=== PATIENT | female | born 1980 | race African-American/Black ===

== ENCOUNTER 2022-01-08 02:57 | Inpatient (IN) | payer BC, SELFPAY ==
[2022-01-08] VITALS (20 sets, daily range): BP systolic 93–125; BP diastolic 55–88; PULSE 70–95; RESP 16; TEMP 36.4–37.4; O2SAT 97; BMI 32.3
[2022-01-08] MEDS: METHYLERGONOVINE MALEATE 0.2 MG/ML INJ IM (03:52)
[2022-01-08] MEDS: miSOPROStoL 800 MCG/4 TABLET PR (03:55)
--- NOTE | 2022-01-08 04:22 | PM.OBHPLI ---
OB - H&P: HPI Labor/Induction History of Present Illness Time Seen by Provider: 03:15 Date Seen: 01/08/22 Chief Complaint: The patient is a 41 year old 10 para 6 at 37 2/7 weeks gestation by LMP, who presented to L&D reporting SROM at 0134 with clear fluid. Chief complaint: Maternity : 10 Para: 6 Date of last menstrual period: 04/22/21 Estimated date of delivery: 01/27/22 Gestational age based on last menstrual period: 37 Narrative: Poppy Barber is a 41 year old 10 para 6 at 37 2/7 weeks gestation by LMP c/w 5w6d US, who presented to L&D reporting SROM at 0134 with clear fluid. PT reports mild contractions started shortly thereafter and became drastically stronger at 2:25am. She arrived at hospital at 3am and was checked by nursing and complete History of Present Dating criteria: based on LMP care: good care Ultrasounds: normal 1st trimester US and abnormal US findings Abnormal ultrasound findings: Initial level 2 anatomy with marginal placenta previa. Follow up US 12/04/21 showed resolution of previa but with ?microcephaly. Level 2US with MPP 12/21/21 reported 'no evidence of microcephaly' with EFW 38% complications comment: Grandmultiparous and AMA, weekly BPP's since 32wks Labs Blood type: A (+) positive Rubella: immune RPR/VDLR: nonreactive GBS status: negative HBsAG: negative Meds Home Medications and Allergies Home Medications Medication Instructions Recorded Confirmed Type aspirin 81 mg tablet,delayed mg 01/08/22 History release Home Medication Comments: PNV daily Allergies Allergy/AdvReac Type Severity Reaction Status Date / Time No Known Drug Allergies Allergy Verified 01/08/22 04:00 OB - H&P: Exam Physical Exam: Vital signs: Temp Pulse BP 97.6 F 91 116/71 01/08/22 03:32 01/08/22 04:15 01/08/22 04:15 Narrative: Exam limited as on my arrival pt was complete and ready to push. Detailed Labor and Delivery Exam: Patient Gravid: yes Dilation (cm): 10 Effacement (%): 100 Cervix position: anterior Tachysystole: No Contraction intensity: Strong/Firm Fetus (Single): Amniotic Membrane Status: SROM Amniotic Membrane Fluid Description: Clear Heart Rate Baseline: 140 Monitor Accelerations: Absent Monitor Decelerations: Recurrent (with contractions/pushing) Oncology Radiation Physician Variability: Average (6-10) OB - Problem Based A/P Additional Plan (1) Active labor: Status: Acute (2) AMA (advanced maternal age) multigravida 35+: Status: Acute Delivery/Labor/Induction Plan Plan: expectant management (see delivery note, precipitous delivery)
[2022-01-08] MEDS: ACETAMINOPHEN 500 MG TABLET 1000 MG PO ×3 (04:35→19:42)
--- NOTE | 2022-01-08 04:47 | PM.OBPRCVD ---
Procedure Delivery date: 01/08/22 Procedure Done: Global Procedure Details: The patient is a 41 year-old admitted on 01/08/22 at 37 Weeks, 2 Days gestation for SROM and active labor.? Cervical exam on admission was 10 cm/100 % effaced with membranes ruptured in vertex presentation.? Contractions were every 2-3 minutes.? heart rate demonstrated baseline 140 bpm with moderate variability, no accelerations, + variable decelerations with contractions; a category 1 tracing.? SROM occurred at 0134 with clear fluid. Pt reports mild cramping started shortly thereafter and then significantly increased around 2:25 and she presented to Center at 3am complete. On my arrival at 3:15am she was complete and had started 'mild' pushing around 3:12am. I assumed care from ER provider and pt pushed with next contraction, 3 pushes and delivered baby as below. ? Labor Analgesia:? None ? Pitocin:? No ? Labor onset:? 0225am ? Complete:? 0300am ? Pushing:? 0312am ? heart tones during second stage were category 1. ? At 0320 a viable female infant delivered in vertex presentation over intact perineum via spontaneous vaginal delivery.? was placed on maternal abdomen.? Infant had spontaneous cry on delivery. Nose and mouth were bulb suctioned. no resuscitation need. Delayed cord clamping performed.? Infant weight pending.? 8 at 1 minute and 9 at 5 minutes.? Shoulder dystocia: no.? Nuchal cord: no. Shortly after infants delivery, patient has small gush of blood and 800mcg cytotec was placed rectally (due to pitocin shortage). ? Placenta delivered spontaneously and complete at 344 with a 3 vessel cord. Patient then had increased bleeding and bimanual massage performed with good results and firming of uterus. Methergine given. no further significant bleeding. ? Mother and infant were stable after delivery. ? Lacerations:? second degree with superficial tear extending to edge of rectum, repaired with 3-0 vicryl. ? Blood loss: 400 mL. Blood loss measurement type: QBL ? Sponge and needles counts are correct. Events: AMA Intrapartal Events: Precipitous Labor <3 Hrs Delivery monitor: external FHT Route of delivery: Laceration description: Perineal - 2nd Degree Delivery repair: Vicryl Estimated blood loss (mL): 400 Anesthesia type: None Disposition: floor [place] Gender: Female presentation: vertex Placental Delivery Description: Spontaneous Cord Description: 3 Vessels
[2022-01-08 05:15] LABS: Basophils Absolute Auto 0.01 K/uL (0.00-0.30); Basophils Percent Auto 0.1 % (0.0-3.0); Eosinophils Absolute Auto 0.04 K/uL (0.00-0.50); Eosinophils Percent Auto 0.4 % (0.0-7.0); Hematocrit 37.6 % (33.0-51.0); Hemoglobin* 12.1 gm/dL (12.0-16.0); Immature Granulocytes Abs Auto 0.02 K/uL (0.00-0.30); Lymphocytes Percent Auto 10.4 % (20-44); Mean Corpuscular HGB Conc 32 gm/dL (32-36); Mean Corpuscular Hemoglobin 26 pg (26-34); Mean Corpuscular Volume 81 fL (80-100); Monocytes Percent Auto 5.1 % (0.0-11.0); Neutrophils Percent Auto 83.8 % (42.0-72.0); Platelet Count* 187 K/uL (140-440); RDW Coefficient of Variation % 15.4 % (11.5-15.5); Red Blood Count 4.63 m/uL (4.00-5.20); White Blood Count* 10.45 K/uL (4.50-11.00)
[2022-01-08 05:19] LABS: Slide Review Reflex No
[2022-01-08 07:19] LABS: SARS PCR* Negative SARS-CoV-2 (Negative)
[2022-01-08] MEDS: IBUPROFEN 600 MG TABLET PO ×2 (08:30→16:15)
[2022-01-08] MEDS: DOCUSATE SODIUM 100 MG CAPSULE PO (08:30)
[2022-01-09] VITALS: BP 97/63; PULSE 95; RESP 16; TEMP 37.2; O2SAT 97
[2022-01-09] MEDS: IBUPROFEN 600 MG TABLET PO ×2 (00:16→08:44)
[2022-01-09] MEDS: ACETAMINOPHEN 500 MG TABLET 1000 MG PO ×2 (04:25→12:11)
[2022-01-09 04:50] VITALS: BP 93/62; PULSE 95; RESP 16; TEMP 36.8; O2SAT 97
[2022-01-09 07:23] LABS: Hemoglobin* 9.1 gm/dL (12.0-16.0)
[2022-01-09] MEDS: DOCUSATE SODIUM 100 MG CAPSULE PO (08:43)
--- NOTE | 2022-01-09 09:15 | PM.OBDSVD1 ---
DS: Providers Provider Time Seen by Provider: 09:00 Date Seen: 01/09/22 Date of admission: 01/08/22 02:57 Primary care physician: Belgica Linn DO Admitting Clinician: Belgica Linn DO Attending Physician on discharge: Belgica Linn DO Date of Discharge: 01/09/22 DS: Diagnosis Discharge Diagnosis (1) (normal spontaneous vaginal delivery): Status: Acute (2) Precipitous delivery: Status: Acute Exam Const: Vital Signs, click to edit/add: Vital Signs - 24 hr 01/08/22 11:05 01/08/22 16:50 01/08/22 19:30 Temperature 97.7 F 99.4 F 98.9 F Pulse Rate [Pulse Oximeter] 93 92 95 Respiratory Rate 16 16 16 Blood Pressure [Le ft Arm] 93/63 104/70 101/58 L Pulse Oximetry 97 97 97 Oxygen Delivery Me thod Room Air Room Air Room Air 01/09/22 00:00 01/09/22 04:50 Temperature 98.9 F 98.3 F Pulse Rate [Pulse Oximeter] 95 95 Respiratory Rate 16 16 Blood Pressure [Le ft Arm] 97/63 93/62 Pulse Oximetry 97 97 Oxygen Delivery Me thod Room Air Room Air Common normals: no apparent distress and healthy appearing : Uterus: U/U and firm Lochia: small (per nursing notes) OB - DS: Summary Hospital Course Hospital Course: The patient is a 41 year old G 10 P 6, now 7 at 37 2/7 weeks gestation that was admitted to the Center on 01/08/22 for active labor, presenting complete after SROM at home. Delivery was significant for being precipitous and mild hemorrhage (given cytotec and methergin). She delivered a viable female infant. She is breast feeding. the patient has done well. Peripartum Data Infant delivery method: Vaginal Laceration description: Vaginal - 2nd Degree (superficial extension to edge of rectum, repaired) Gender: Female Discharge Plan: Home Status at Discharge Cognitive/behavioral status at discharge: Good Time Spent with Patient Time attestation: Total time spent providing and/or coordinating discharge services: Specific discharge activities: Pelvic rest 6 weeks Discharge Plan Discharge Disposition: Home, Self-Care Date of Admission: 01/08/22 02:57 Attending Provider on Discharge: Belgica Linn Primary Care Provider: Belgica Linn Condition: Stable Anticipated Discharge Date/Time: 01/09/22 09:23 Discharge Medications: New acetaminophen 500 mg Tablet 1,000 mg PO Q6H PRNQty: 30 0RF docusate sodium 100 mg Capsule 100 mg PO DAILY Qty: 30 0RF ibuprofen 600 mg Tablet 600 mg PO Q6H PRNQty: 30 0RF Discontinued aspirin 81 mg tablet,delayed release (DR/EC) Discharge Orders: Discharge Order (Routine); Ordered 01/09/22 Ordered By: Belgica Linn Patient Education: OB Vaginal/Breast Feeding Activity Level: Activity as Tolerated Activity Detail: pelvic rest x 6 wks Discharge Diet: Regular Follow Up Appointments: Belgica Linn DO [Primary Care Provider] - (Please schedule 6 week visit with me) Forms: MyHealth Info Instructions
[2022-01-09 10:20] VITALS: RESP 16; O2SAT 99
== END 2022-01-09 14:25 | disposition home or self-care (01) | DRG 560 ==
PROVIDERS: Admitting Provider Family Medicine; PCP Family Medicine; Visit Provider Family Medicine
DX: O62.3 Precipitate labor (principal); O70.1 Second degree perineal laceration during delivery; Z3A.37 37 weeks gestation of pregnancy; O72.1 Other immediate postpartum hemorrhage; Z37.0 Single live birth
CPT/HCPCS: 36415; 85018; 85025; 86850; 86900; 86901; 87635; A9270; J2210